=== PATIENT | female | born 1935 ===

== ENCOUNTER 2017-04-05 12:32 | Outpatient (CLI) | payer MEDICARE ==
[2017-04-05 16:19] LABS: Anion Gap 16 mmol/L (10-20); BUN (Urea Nitrogen) 19 mg/dL (9.8-20.1); Calc. Creatinine Clearance 0 mL/min (70-130); Calcium 10.2 mg/dL (7.8-10.44); Cardiac Risk 2.6 (Less than 4.5); Chloride 103 mmol/L (98-107); Cholesterol 186 mg/dl (< 200 Desired); Estimated GFR-MDRD 66; Glucose 121 mg/dL (83-110); HDL Cholesterol 72 mg/dL (>60 Neg Risk); LDL Cholesterol, Calculated 101 mg/dL; Sodium 141 mmol/L (136-145); Triglycerides 63 mg/dL (Less than 150)
[2017-04-05 16:28] LABS: Carbon Dioxide 26 mmol/L (23-31)
== END 2017-04-05 12:33 | disposition home or self-care (01) ==
LOC: NAVSJIPCSP 12:32
PROVIDERS: ATTEND Internal Medicine
DX: I11.9 Hypertensive heart disease without heart failure (principal); I25.10 Atherosclerotic heart disease of native coronary artery without angina pectoris; E03.9 Hypothyroidism, unspecified; E78.5 Hyperlipidemia, unspecified
CPT/HCPCS: 36415; 80048; 80061; 84443